=== PATIENT | female | born 1995 | race Caucasian/White ===

== ENCOUNTER 2020-08-15 16:34 | Inpatient (IN) | payer BC, OTHER ==
[2020-08-15] MEDS ORDERED: METHYLERGONOVINE 0.2 MG/ML 1 ML AMP IM PRN (17:39)
[2020-08-15] MEDS ORDERED: TERBUTALINE 1 MG/ML VIAL SQ PRN (17:39)
[2020-08-15] MEDS ORDERED: OXYTOCIN 10 UNIT/ML 1 ML VIAL IM PRN (17:39)
[2020-08-15] MEDS ORDERED: LIDOCAINE 0.5% (PF) 5 MG/ML (50 ML SDV) SQ PRN (17:39)
[2020-08-15] MEDS ORDERED: CARBOPROST TROMETHAMINE 250 MCG/ML 1 ML AMP IM PRN (17:39)
[2020-08-15] MEDS ORDERED: LACTATED RINGERS 1,000 ML IV SCH (17:45)
[2020-08-15] MEDS: LACTATED RINGERS 1,000 ML IV SCH ×3 (17:56→20:00)
[2020-08-15 18:07] LABS: Basophils # (A) 0.1 k/uL (0-0.2); Basophils % (A) 0 %; Eosinophils # (A) 0.1 k/uL (0-0.7); Eosinophils % (A) 1 %; HGB 11.8 gm/dL (11.4-16.0); Lymphocytes % (A) 21 %; MCHC 33.7 g/dL (31.0-37.0); MCV 92.1 fL (80.0-100.0); Mean Platelet Volume 8.4; Monocytes # (A) 0.7 k/uL (0-1.0); Monocytes % (A) 5 %; Neutrophils # (A) 10.4 k/uL (1.3-7.7); Neutrophils % (A) 72 %; Platelet Count 198 k/uL (150-450); RDW 13.8 % (11.5-15.5); WBC 14.5 k/uL (3.8-10.6)
[2020-08-15] MEDS ORDERED: SODIUM CHLORIDE 0.9% 100 ML BAG ONE (18:10)
[2020-08-15] MEDS ORDERED: ROPIVACAINE 5MG/ML 20ML VIAL ONE (18:10)
[2020-08-15] MEDS ORDERED: fentaNYL (PF) 50 MCG/ML 5 ML AMP ONE (18:10)
--- NOTE | 2020-08-15 18:15 | P.HPOB ---
History of Present Illness H&P Date: 08/15/20 Chief Complaint: Strong regular uterine contractions This is a 25-year-old white female 3 para 1011 EDC 08/26/2020 at 38-3/7 weeks' gestation. Patient presents with strong regular uterine contractions. She denies vaginal bleeding or fluid leakage. Fetus is been active throughout the . history is significant for blood type A+, rubella status immune. Urine culture, group B strep cultures, hepatitis B surface antigen, HIV testing, gonorrhea and chlamydia cultures all negative. One-hour Glucola 69. Past medical history significant for anxiety and depression, iron deficiency, scoliosis, hepatitis C. Past surgical history is negative. Current medications vitamins daily. ALLERGIES none known. Family history significant for bipolar disorder, asthma, diabetes, lung cancer, alcoholism, leukemia, brain tumor, diabetes, depression and anxiety, and liver issues. Obstetric history significant for normal spontaneous vaginal delivery 2016 with episiotomy. Social history patient is single, she is a former tobacco smoker but does have positive THC noted in the urine. On examination patient is 5 foot 3 inches, 217 pounds, vital signs are stable and she is afebrile. The general physical exam is within normal limits. The cervix is 6 cm dilated, 80% effaced, -2 station, vertex presentation. Artificial amniorrhexis reveals bloody fluid with small blood clots. For this reason internal scalp lead is applied. Uterine contractions are occurring approximately every 5 minutes apart of moderate intensity. heart rate is consistent with reactive NST. Impression: 38-3/7 weeks intrauterine , active spontaneous labor, history of positive hepatitis C, bloody fluid noted. Otherwise all signs reassuring with reactive NST. Plan: Patient is requesting epidural and the anesthesia staff is present. Continue close maternal and surveillance. Anticipate normal spontaneous vaginal delivery. Review of Systems Constitutional: Reports as per HPI Past Medical History Past Medical History: No Reported History History of Any Multi-Drug Resistant Organisms: None Reported Past Surgical History: No Surgical Hx Reported Past Anesthesia/Blood Transfusion Reactions: No Reported Reaction Past Psychological History: Anxiety, Depression Smoking Status: Never smoker Past Drug Use History: Marijuana - Past Family History Father Family Medical History: Cancer, Diabetes Mellitus Medications and Allergies Home Medications Medication Instructions Recorded Confirmed Type 78/Iron/Folate 1/Dha 1 tab PO ONCE 08/15/20 08/15/20 History [Prenate Dha Softgel] Allergies Allergy/AdvReac Type Severity Reaction Status Date / Time No Known Allergies Allergy Verified 08/15/20 16:50 Exam Vital Signs Temp Pulse Resp BP Pulse Ox 08/15/20 17:49 97.6 F 82 16 102/61 100 08/15/20 17:39 97.6 F 82 16 102/61 100 Intake and Output 08/15/20 08/15/20 08/15/20 06:59 14:59 22:59 Other: Weight 98.43 kg See dictation under HPI please Results Result Diagrams: 08/15/20 17:55 Abnormal Lab Results - Last 24 Hours (Table) 08/15/20 Range/Units 17:55 WBC 14.5 H (3.8-10.6) k/uL Neutrophils # 10.4 H (1.3-7.7) k/uL Assessment and Plan Assessment: 38-3/7 weeks intrauterine , active spontaneous labor. Bloody amniotic fluid. Medical history of positive hepatitis C. Otherwise all signs reassuring at this time. Plan: Epidural is being placed per patient's request. Close maternal and surveillance. Anticipate normal spontaneous vaginal delivery. Time with Patient: Less than 30
[2020-08-15] MEDS ORDERED: OXYTOCIN 30 UNITS/500 ML NS 30 UNIT in SALINE 1 500ML.BAG IV SCH (18:45)
[2020-08-15] MEDS ORDERED: SIMETHICONE 80 MG CHEWABLE PO PRN (20:55)
[2020-08-15] MEDS ORDERED: diphenhydrAMINE 50 MG/ML 1 ML VIAL IVP PRN ×2 (20:55)
[2020-08-15] MEDS ORDERED: LANOLIN CREAM 5 GM TUBE TOPICAL PRN (20:55)
[2020-08-15] MEDS ORDERED: diphenhydrAMINE ELIXIR 25 MG/10 ML CUP PO PRN (20:55)
[2020-08-15] MEDS ORDERED: diphenhydrAMINE 25 MG CAP PO PRN (20:55)
[2020-08-15] MEDS ORDERED: HYDROCORTISONE 2.5% RECTAL CREAM 30 GM TUBE RECTAL PRN (20:55)
[2020-08-15] MEDS ORDERED: ZOLPIDEM 5 MG TAB PO PRN (20:55)
[2020-08-15] MEDS ORDERED: diphenhydrAMINE 50 MG CAP PO PRN (20:55)
[2020-08-15] MEDS ORDERED: BENZOCAINE/MENTHOL SPRAY 1 GM/SPRAY AEROSOL TOPICAL PRN (20:55)
--- NOTE | 2020-08-15 20:55 | P.PROBDLV ---
Vaginal Delivery Note - . Vaginal Delivery Note: This is a 25-year-old white female 3 para 1011 EDC 08/26/2020 at 38-3/7 weeks' gestation. Patient presented with strong regular uterine contractions from home. remarkable for positive hepatitis C, rubella status immune, negative group B strep cultures, blood type A+. Please see dictated history and physical for details. Artificial amniorrhexis revealed bloody fluid with blood clots. Internal scalp lead was applied. Epidural was placed per her request. Patient progressed to the first stage of labor and became completely dilated at which time the second stage commenced. heart tones revealed excellent [id number] variability, however late decelerations were noted as well with good response back to baseline. Oxygen was given per facemask. Patient did well in the second stage of labor and quickly crowned the . Perineal body was prepped and draped in usual sterile fashion. 's head delivered occiput anterior and he restituted accordingly. There was a knuckle of cord noted between the shoulder and the neck. The right or anterior shoulder was delivered easily from underneath the pubic symphysis at which time the oropharynx, nasopharynx, and external nares were all bulb suctioned. Patient was officially delivered of a liveborn male at 4 hours. Umbilical cord was doubly clamped and ligated, he was handed to waiting nurses for evaluation where scores of 7 and 8 at one and 5 minutes respectively were given. 9. Placenta delivered spontaneously, it was inspected and noted to be intact with trivascular cord. It was sent to pathology for history of blood stained fluid. Careful inspection of the cervix, vagina, perineum, periurethral, and perirectal areas revealed a small first-degree perineal laceration. This is easily repaired in the usual fashion using 3-0 repeat suture. Total estimated blood loss 250 mL's. Infant weighed 8 lbs. 6 oz. or 3800 g. Patient is requesting circumcision for her son.
[2020-08-15] MEDS: IBUPROFEN 600 MG TAB PO PRN (21:12)
[2020-08-15] MEDS: ACETAMINOPHEN TAB 325 MG TAB PO PRN (23:55)
[2020-08-16 01:33] LABS: Amphetamine Screen,Urine Not Detected (NotDetected); Barbiturate Screen,Urine Not Detected (NotDetected); Benzodiazepines Screen,Urine Not Detected (NotDetected); Cocaine Screen,Urine Not Detected (NotDetected); Methadone Screen, Urine Not Detected (NotDetected); Opiate Screen,Urine Not Detected (NotDetected); Oxycodone Screen, Urine Not Detected (NotDetected); Phencyclidine Screen,Urine Not Detected (NotDetected); Tricyclic Antidepressant,Urine Not Detected (NotDetected); Urn Cannabinoid Scrn Not Detected (NotDetected)
[2020-08-16] MEDS: IBUPROFEN 600 MG TAB PO PRN ×3 (04:30→21:03)
[2020-08-16] MEDS: SENNOSIDES-DOCUSATE SODIUM 1 EACH TAB PO SCH ×2 (08:48→22:03)
[2020-08-16] MEDS: ACETAMINOPHEN TAB 325 MG TAB PO PRN (08:48)
--- NOTE | 2020-08-16 10:36 | P.DS ---
Providers Date of admission: 08/15/20 17:39 Expected date of discharge: 08/16/20 Attending physician: Bharat Nice Primary care physician: Stated None Hospital Course: This is a 25-year-old white female 3 para 1011 EDC 08/26/2020 at 38-3/7 weeks' gestation. Patient presented dictated in active spontaneous labor. remarkable for blood type A+, rubella status immune, group B strep cultures negative. Please see dictated history and physical for details. Artificial amniorrhexis revealed bloody fluid with blood clots. Internal scalp lead was applied. Epidural was placed per her request. She went on to deliver vaginally a liveborn male infant with scores of 7 and 8 and 9 at one and 5 and 10 minutes respectively. weighed 3800 g or 8 lbs. 6 oz. Pleasant estimated blood loss recorded of 250 mL's. Please see dictated delivery note for details. Small first-degree perineal laceration easily repaired. This morning the patient is doing well. She is voiding, ambulating and passing flatus without difficulty. Vital signs are stable and she is afebrile. Fundus is firm and in the midline, symmetric and 18 week size. Extremities are negative for edema. [place] is doing well. Circumcision will be performed this morning. Patient is judged to be in very good condition for discharge home. She will follow-up with her primary physician in 6 weeks. She is reminded no intercourse, tampons or douching. She will use [id number] Advil or Aleve, or Motrin as needed for pain. She will call with any fevers shakes or chills, foul smelling or copious lochia, with the passage of large blood clots, with any pain not alleviated by [id number] products, or indeed with any difficulties or concerns. [place] infant will follow up with [facility] as recommended. Patient Condition at Discharge: Good Plan - Discharge Summary Discharge Rx Participant: No New Discharge Prescriptions: No Action 78/Iron/Folate 1/Dha [Prenate Dha Softgel] 1 tab PO ONCE Discharge Medication List 78/Iron/Folate 1/Dha [Prenate Dha Softgel] 1 tab PO ONCE 08/15/20 [History] Follow up Appointment(s)/Referral(s): Bharat Nice MD [STAFF PHYSICIAN] - 6 Weeks Discharge Disposition: HOME SELF-CARE
[2020-08-16] MEDS: LACTATED RINGERS 1,000 ML IV SCH (22:02)
[2020-08-17] MEDS: IBUPROFEN 600 MG TAB PO PRN (06:02)
[2020-08-17 07:47] VITALS: BP 113/74; PULSE 77; RESP 15; TEMP 98
== END 2020-08-17 09:45 | disposition home or self-care (01) | DRG 806 ==
LOC: FBPOP 16:34 → 4FBP 17:39
PROVIDERS: ADMIT Obstetrics & Gynecology; ATTEND Obstetrics & Gynecology
PROC: 0HQ9XZZ Repair Perineum Skin, External Approach (ICD-10-PCS; principal; 2020-08-15)
PROC: 00HU33Z Insertion of Infusion Device into Spinal Canal, Percutaneous Approach (ICD-10-PCS; principal; 2020-08-15)
PROC: 10E0XZZ Delivery of Products of Conception, External Approach (ICD-10-PCS; principal; 2020-08-15)
PROC: 3E0R3BZ Introduction of Anesthetic Agent into Spinal Canal, Percutaneous Approach (ICD-10-PCS; principal; 2020-08-15)
DX: O76 Abnormality in fetal heart rate and rhythm complicating labor and delivery (principal); O98.42 Viral hepatitis complicating childbirth; Z37.0 Single live birth; B19.20 Unspecified viral hepatitis C without hepatic coma; O70.0 First degree perineal laceration during delivery; Z3A.38 38 weeks gestation of pregnancy; O99.892 Other specified diseases and conditions complicating childbirth; M41.9 Scoliosis, unspecified; Z79.899 Other long term (current) drug therapy; Z86.59 Personal history of other mental and behavioral disorders; Z87.891 Personal history of nicotine dependence; Z86.2 Personal history of diseases of the blood and blood-forming organs and certain disorders involving the immune mechanism; Z83.3 Family history of diabetes mellitus; Z82.5 Family history of asthma and other chronic lower respiratory diseases; Z81.8 Family history of other mental and behavioral disorders; Z80.1 Family history of malignant neoplasm of trachea, bronchus and lung; Z81.1 Family history of alcohol abuse and dependence; Z80.6 Family history of leukemia; Z83.79 Family history of other diseases of the digestive system
CPT/HCPCS: 59025; 80306; 85025; 86850; 86900; 86901; 88307; 99213